=== PATIENT | male | born 1995 | race Caucasian/White ===

== ENCOUNTER 2017-03-20 19:18 | Emergency (ER) | payer OTHER, MEDICARE ==
[~2017-03-20] VITALS: Ht 167.6 cm; Wt 70.3 kg
[~2017-03-20 19:18] MED LIST: NASAREL 0.200 SPRAY/ NASB
--- NOTE | 2017-03-20 20:04 | ED GENERAL ADULT ---
History of Present Illness General Chief Complaint: General Adult Stated Complaint: DRANK BUBBLE SOULTION Source: staff worker accompanying patient Exam Limitations: physical impairment Vital Signs & Intake/Output Vital Signs & Intake/Output Vital Signs Date Time Temp Pulse Resp B/P B/P Pulse O2 O2 Flow FiO2 Mean Ox Delivery Rate 03/20 2118 96.7 90 18 165/87 98 Room Air 03/20 1959 98.2 65 18 113/73 98 Room Air Allergies Coded Allergies: MDX - Seafood (SEAFOOD) (UNKNOWN 11/01/15) Reconcile Medications Flunisolide (Nasarel 0.025% 25ML) 200 SPRAY/BOT SPR 1 SPRAY NASB BID Dry nasal mucosa Triage Nurses Notes Reviewed? yes Onset: Abrupt Duration: minute(s):, hour(s): Timing: single episode today Injury Environment: home Severity: mild Modifying Factors: Improves With: rest. Associated Symptoms: pt feels well as per his staff worker HPI: 22 yo gentleman with mental delay, non verbal, presents from [facility] after allegedly drinking approximately 8 ounces of a bubble solution. Per the aide, "We saw him at around 6:30pm... He was holding the open bottle of bubble soap.... The bottle was empty and there was no bubble solution on the floor." No one witnessed him drinking the soap, as per the staffer He is otherwise behaving normally, in no distress. Past History Travel History Traveled to [place] past 21 day No Medical History Any Pertinent Medical History? 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 No Review of Systems Review of Systems Constitutional: Reports: no symptoms. EENTM: Reports: no symptoms. Respiratory: Reports: no symptoms. Cardiovascular: Reports: no symptoms. GI: Reports: no symptoms. Genitourinary: Reports: no symptoms. Musculoskeletal: Reports: no symptoms. Skin: Reports: no symptoms. Neurological/Psychological: Reports: no symptoms. Hematologic/Endocrine: Reports: no symptoms. Immunologic/Allergic: Reports: no symptoms. All Other Systems: Reviewed and Negative Physical Exam Physical Exam General Appearance: well developed/nourished, no apparent distress Head: atraumatic, normal appearance Eyes: Bilateral: normal appearance. Ears, Nose, Throat: normal pharynx, normal ENT inspection, hearing grossly normal Neck: normal inspection, supple, full range of motion Respiratory: normal breath sounds, chest non-tender, no respiratory distress, quiet respiration, lungs clear Cardiovascular: regular rate/rhythm Gastrointestinal: normal bowel sounds, soft, non-tender, no organomegaly Back: normal inspection, normal range of motion Extremities: normal inspection, normal capillary refill, normal range of motion Neurologic/Psych: no motor/sensory deficits, awake, alert, non verbal Reflexes: 1+: bicep (R), bicep (L), knee (R), knee (L). Skin: intact, normal color, warm/dry Core Measures ACS in differential dx? No CVA/TIA Diagnosis: No Severe Sepsis Present: No Septic Shock Present: No Progress Differential Diagnoses I considered the following diagnoses in my evaluation of the patient: non toxic vs toxic ingestion vs other. Plan of Care: Laboratory Tests 03/20/171926: Salicylates Cancelled 03/20/171926: CBC w Diff Cancelled, WBC Cancelled, RBC Cancelled, Hgb Cancelled, Hct Cancelled , MCV Cancelled, MCH Cancelled, RDW Cancelled, Plt Count Cancelled, MPV Cancelled, PUBS MCHC Cancelled, Methadone Screen Cancelled, Barbiturate Screen Cancelled, Ur Phencyclidine Scrn Cancelled, Amphetamines Screen Cancelled, U Benzodiazepines Scrn Cancelled, Urine Cocaine Screen Cancelled, Urine Cannabis Screen Cancelled, Urine Color Cancelled, Urine Clarity Cancelled, Urine pH Cancelled, Ur Specific Stephenson Cancelled, Urine Protein Cancelled, Urine Ketones Cancelled, Urine Nitrite Cancelled, Urine Bilirubin Cancelled, Urine Urobilinogen Cancelled, Ur Leukocyte Esterase Cancelled, Ur Microscopic Cancelled, Urine Hemoglobin Cancelled, Urine Glucose Cancelled Initial ED EKG: none Departure Departure Disposition: HOME OR SELF CARE Condition: Stable Clinical Impression Primary Impression: Ingestion of detergent or soap Referrals: BEHZAD CINTRON MD (PCP/Family) Departure Forms: Customer Survey General Discharge Information Comments 03/20/17, 20:00... case discussed by RN with poison control.... pt to have PO challenge, if tolerates, pt is safe. No need for blood work. 03/20/17, 21:16...TOLERATED FLUIDS. WELL APPEARING... SAFE FOR DISCHARGE Critical Care Note Critical Care Note Critical Care Time: non-applicable
[2017-03-20 21:18] VITALS: BP 165/87
== END 2017-03-20 21:20 ==
LOC: ERH 19:18
DX: T55.0X1A Toxic effect of soaps, accidental (unintentional), initial encounter (principal)
CPT/HCPCS: 80307; G0480